=== PATIENT | male | born 1940 | race Caucasian/White ===

== ENCOUNTER 2016-10-08 23:52 | Emergency (ER) | payer MEDICARE, BC ==
[2013-12-22 00:59] VITALS: BMI 37.6
[~2016-10-08 23:52] MED LIST: ADVIL200 MG PO; ASPIRIN325 MG PO; DIABETA5 MG PO; FLAXSEED OIL1000 MG PO; FOLATE0.4 MG PO; GLUCOPHAGE500 MG PO; GLUCOSAMINE & C1 CAP PO; LEVAQUIN500 MG PO; LISINOPRIL2.5 MG PO; MAXZIDE 75/501 TAB PO; MEGA RED PO; NIACIN100 MG; NITROSTAT0.4 MG SL; NORCO 5/325 TAB1 TA1 PO; OSTEO BI-FLEX1 EAC1 PO; POTASSIUM99 M1 PO; PROTONIX40 MG PO; ROBITUSSIN DM 110 ML PO; SUPER B COMPLE150 MG PO; TRADJENTA5 MG PO; TUMS500 MG PO; ULTRAM50 MG PO; VITAMIN B-1250 MCG; VITAMIN D2000 UNIT PO; XANAX0.5 MG PO; ZOCOR5 MG PO
== END 2016-10-09 00:50 | disposition home or self-care (01) ==
LOC: D.ER 23:52
DX: R51 Headache (principal); J01.90 Acute sinusitis, unspecified; I10 Essential (primary) hypertension; E83.42 Hypomagnesemia; E87.1 Hypo-osmolality and hyponatremia; E11.9 Type 2 diabetes mellitus without complications

== ENCOUNTER → 2017-05-24 11:51 | Outpatient (CLI) | payer MEDICARE, BC ==
[2013-12-22 00:59] VITALS: BMI 37.6
[2017-05-24 12:38] LABS: BASOPHILS 0.8 % (0-2); EOSINOPHILS 2.4 % (0-7); HEMATOCRIT 45.1 % (42.0-54.0); HEMOGLOBIN 16.1 g/dL (13.5-17.5); IMMATURE GRANULOCYTES 0.4 % (0-5); LYMPHOCYTES 31.3 % (15-50); MCH 31.1 pg (26.0-34.0); MCHC 35.7 g/dL (31.0-37.0); MCV 87.1 fL (80.0-100.0); MEAN PLATELET VOLUME 10.5 fL (7.4-10.4); MONOCYTES 7.7 % (2-11); NEUTROPHILS 57.4 % (40-80); RBC 5.18 10x6/uL (4.20-6.10); RDW 13.1 % (11.5-14.5); WBC 9.1 10x3/uL (4.8-10.8)
[2017-05-24 12:46] LABS: APPEARANCE CLEAR (CLEAR); BILIRUBIN NEGATIVE (NEGATIVE); COLOR DK YELLOW (YELLOW); GLUCOSE 100 mg/dL (NEGATIVE); KETONE NEGATIVE (NEGATIVE); LEUKOCYTE ESTERASE NEGATIVE (NEGATIVE); NITRITE NEGATIVE (NEGATIVE); PROTEIN NEGATIVE (NEGATIVE); SPECIFIC GRAVITY 1.025 (1.005-1.020); UROBILINOGEN NORMAL (NORMAL)
[2017-05-24 12:47] LABS: PLATELET COUNT 208 10x3/uL (130-400)
[2017-05-24 12:57] LABS: HEMOGLOBIN A1C 7.7 % (4.8-6.0)
[2017-05-24 13:07] LABS: ALBUMIN 3.4 g/dL (3.4-5.0); ANION GAP 14.7 mmol/L (8-16); BILIRUBIN - TOTAL 0.48 mg/dL (0.2-1.3); CARBON DIOXIDE 28.7 mmol/L (21.0-32.0); CHOL - HDL RATIO 5.6 ratio (2.3-4.9); CREATININE - SERUM 1.1 mg/dL (0.6-1.3); LDL-HDL RATIO 3.4 ratio (1.5-3.5); POTASSIUM - SERUM 4.4 mmol/L (3.5-5.1); PROTEIN - SERUM 6.9 g/dL (6.4-8.2)
[2017-05-24 13:13] LABS: SCREENING PSA (YEARLY) 1.1 ng/mL (0.00-4.00)
== END | disposition home or self-care (01) ==
LOC: D.LAB 08:00
PROVIDERS: Family Medicine
DX: Z00.00 Encounter for general adult medical examination without abnormal findings (principal); E11.9 Type 2 diabetes mellitus without complications; I10 Essential (primary) hypertension; I25.10 Atherosclerotic heart disease of native coronary artery without angina pectoris; E78.4 Other hyperlipidemia; N40.0 Benign prostatic hyperplasia without lower urinary tract symptoms

== ENCOUNTER → 2017-12-22 10:16 | Outpatient (CLI) | payer MEDICARE, BC ==
[2013-12-22 00:59] VITALS: BMI 37.6
== END | disposition home or self-care (01) ==
LOC: D.RAD 10:16
DX: M54.5 Low back pain (principal)

== ENCOUNTER 2017-12-22 11:24 | Emergency (ER) | payer MEDICARE, BC ==
[2013-12-22 00:59] VITALS: BMI 37.6
== END 2017-12-22 12:39 | disposition home or self-care (01) ==
LOC: D.ER 11:24
DX: M54.2 Cervicalgia (principal); F17.200 Nicotine dependence, unspecified, uncomplicated; E11.9 Type 2 diabetes mellitus without complications; I10 Essential (primary) hypertension

== ENCOUNTER → 2018-01-18 09:25 | Outpatient (CLI) | payer MEDICARE, BC ==
[2013-12-22 00:59] VITALS: BMI 37.6
== END | disposition home or self-care (01) ==
LOC: D.RAD 09:25
DX: R22.32 Localized swelling, mass and lump, left upper limb (principal)

== ENCOUNTER → 2018-10-10 12:46 | Outpatient (CLI) | payer MEDICARE, BC ==
[2013-12-22 00:59] VITALS: BMI 37.6
== END | disposition home or self-care (01) ==
LOC: D.RAD 12:46
DX: M54.2 Cervicalgia (principal)

== ENCOUNTER → 2019-09-24 12:32 | Outpatient (CLI) | payer MEDICARE, BC ==
[2013-12-22 00:59] VITALS: BMI 37.6
== END | disposition home or self-care (01) ==
LOC: D.LAB 12:32
PROVIDERS: ATTEND Family Medicine
DX: E11.9 Type 2 diabetes mellitus without complications (principal); N40.0 Benign prostatic hyperplasia without lower urinary tract symptoms; Z00.00 Encounter for general adult medical examination without abnormal findings; I25.10 Atherosclerotic heart disease of native coronary artery without angina pectoris; I10 Essential (primary) hypertension

== ENCOUNTER 2020-03-26 13:28 | Emergency (ER) | payer MEDICARE, BC ==
[~2020-03-26] VITALS: Ht 185.4 cm; Wt 118.2 kg
[2020-03-26 13:29] VITALS: Ht 185.4 cm; Wt 118.2 kg
[2020-03-26 13:48] LABS: BASOPHILS 0.5 % (0-2); EOSINOPHILS 1.7 % (0-7); HEMATOCRIT 48.3 % (42.0-54.0); HEMOGLOBIN 16.8 g/dL (13.5-17.5); IMMATURE GRANULOCYTES 0.6 % (0-5); LYMPHOCYTES 18.3 % (15-50); MCH 31.2 pg (26.0-34.0); MCHC 34.8 g/dL (31.0-37.0); MCV 89.6 fL (80.0-100.0); MEAN PLATELET VOLUME 10.5 fL (7.4-10.4); MONOCYTES 6.2 % (2-11); NEUTROPHILS 72.7 % (40-80); PLATELET COUNT 223 10x3/uL (130-400); RBC 5.39 10x6/uL (4.20-6.10); RDW 13.3 % (11.5-14.5); WBC 12.7 10x3/uL (4.8-10.8)
[2020-03-26 13:59] LABS: ANION GAP 8.2 mmol/L (8-16); APTT 26.2 SECONDS (22.8-39.4); CALCIUM 9.7 mg/dL (8.5-10.1); CREATININE - SERUM 1.2 mg/dL (0.6-1.3); INR 0.97 (0.85-1.17); POTASSIUM - SERUM 4.2 mmol/L (3.5-5.1); PROTIME 12.9 SECONDS (11.6-15.0)
[2020-03-26 14:01] LABS: ALBUMIN 3.7 g/dL (3.4-5.0); BILIRUBIN - TOTAL 0.88 mg/dL (0.2-1.3); PROTEIN - SERUM 7.7 g/dL (6.4-8.2)
[2020-03-26] MEDS ORDERED: MEDROL DOSE PACK4 MG PO (15:25)
[2020-03-26 17:45] VITALS: BP 134/62
== END 2020-03-26 18:50 | disposition home or self-care (01) ==
LOC: D.ER 13:28
PROVIDERS: Family Medicine
DX: S09.90XA Unspecified injury of head, initial encounter (principal); S32.019A Unspecified fracture of first lumbar vertebra, initial encounter for closed fracture; D72.829 Elevated white blood cell count, unspecified; T14.8XXA Other injury of unspecified body region, initial encounter; V89.2XXA Person injured in unspecified motor-vehicle accident, traffic, initial encounter; Y93.9 Activity, unspecified; Y92.9 Unspecified place or not applicable; E11.9 Type 2 diabetes mellitus without complications; Z79.84 Long term (current) use of oral hypoglycemic drugs

== ENCOUNTER 2020-06-08 12:01 | Inpatient (IN) | payer MEDICARE, BC ==
[~2020-06-08] VITALS: Ht 185.4 cm; Wt 111.7 kg
[2020-06-08] VITALS (11 sets, daily range): BP systolic 89–156; BP diastolic 44–82
[~2020-06-08 12:01] MED LIST changes: +MEDROL DOSE PACK4 MG PO
[2020-06-08 12:41] LABS: BILIRUBIN NEGATIVE (NEGATIVE); KETONE NEGATIVE (NEGATIVE); NITRITE POSITIVE (NEGATIVE); UROBILINOGEN NORMAL mg/dL (< 2)
[2020-06-08 12:42] LABS: BACTERIA MANY HPF (NONE SEEN); EPITHELIAL CELLS 0-5 /hpf (0-5); WHITE CELLS - URINE >50 HPF (0-1)
[2020-06-08 13:30] LABS: BASOPHILS 0.4 % (0-2); EOSINOPHILS 0.5 % (0-7); HEMATOCRIT 43.9 % (42.0-54.0); HEMOGLOBIN 14.9 g/dL (13.5-17.5); IMMATURE GRANULOCYTES 0.9 % (0-5); LYMPHOCYTES 6.2 % (15-50); MCHC 33.9 g/dL (31.0-37.0); MCV 88.3 fL (80.0-100.0); MEAN PLATELET VOLUME 9.7 fL (7.4-10.4); MONOCYTES 0.4 % (2-11); NEUTROPHILS 91.6 % (40-80); PLATELET COUNT 248 10x3/uL (130-400); RBC 4.97 10x6/uL (4.20-6.10); RDW 13.5 % (11.5-14.5); WBC 5.5 10x3/uL (4.8-10.8)
[2020-06-08 13:42] LABS: CALC OSMOLALITY 284 mosm/kg (275-300); CALCIUM 8.9 mg/dL (8.5-10.1); CARBON DIOXIDE 25.3 mmol/L (21.0-32.0); CHLORIDE - SERUM 103 mmol/L (98-107); GLUCOSE 242 mg/dL (74-106); POTASSIUM - SERUM 4.1 mmol/L (3.5-5.1); SODIUM 138 mmol/L (136-145); UREA NITROGEN 14 mg/dL (7-18); eGFR NON AFRICAN AMERICAN 77 mL/min (90-120)
[2020-06-08 13:50] LABS: ALBUMIN 3.2 g/dL (3.4-5.0); ALKALINE PHOSPHATASE 178 U/L (30-120); ALT (SGPT) 9 U/L (10-68); BILIRUBIN - TOTAL 0.89 mg/dL (0.2-1.3); PROTEIN - SERUM 7.5 g/dL (6.4-8.2); TROPONIN-I 0.056 ng/mL (0.000-0.060)
--- NOTE | 2020-06-08 14:30 | NUR ---
PT PRESENTW WITH INCREASED SOB AND INCREASED AGITATION. MD NOTIFIED AND REQUESTS PT BE MOVED TO THE TRAUMA ROOM AND PREP FOR INTUBATION. PT PLACED ON NON REBREATHER 15 LPM. RT CALLED ASSIST WITH INTUBATION. SUCC 150 MG IV @ 1435 AND VERSED 10 MMG IV @ 1434. PREOXYGENTATED PT HIGH FLOW O2. DR VARGAS PLACED ET TUBE 7.5 SIZE TUBE 23 AT THE LIP. ETCO2 COLOR CHANGE. X RAY AT BEDSIDE. NG TUBE PLACED CONFIRMATION OF PLACEMENT ATTACHED TO SUCTION. QUIROGA CATH PLACED YELLOW COLORED URINE RETURN IN CATH BAG.
--- NOTE | 2020-06-08 14:50 | NUR ---
PROPROFOL 35 MCG/KG/MIN DRIP
--- NOTE | 2020-06-08 15:00 | NUR ---
AT BEDSIDE DR VARGAS DISCUSSED WITH SPOUSE UPDATES ON PT CONDITION.
--- NOTE | 2020-06-08 15:01 | NUR ---
50 MG OF SUCC WASTED
--- NOTE | 2020-06-08 15:04 | NUR ---
COVID AND FLU SWAB OBTAINED AND WALKED TO LAB
--- NOTE | 2020-06-08 15:20 | NUR ---
LAB AT BEDSIDE
--- NOTE | 2020-06-08 15:20 | NUR ---
RESTRAINTS APPLIED TO R AN L WRIST RISK OF SELF EXTUBATION
[2020-06-08 15:37] LABS: APTT 23.6 SECONDS (22.8-39.4); INR 1.02 (0.85-1.17); PROTIME 13.4 SECONDS (11.6-15.0)
--- NOTE | 2020-06-08 16:16 | NUR ---
1240 AT TIME JET PLACED IN ED ROOM, ORAL TEMP TAKEN DUE TO ELEVATED HEART RATE, ORAL TEMP 103.0
[2020-06-08 16:24] LABS: TROPONIN-I 1.654 ng/mL (0.000-0.060)
[2020-06-08 16:34] LABS: C-REACTIVE PROTEIN 2.1 mg/dL (0.0-0.9)
--- NOTE | 2020-06-08 17:02 | NUR ---
MD AWARE OF PTS VITAL SIGNS
--- NOTE | 2020-06-08 19:29 | NUR ---
DIPRIAN INCREASED TO 20 MCG/KG/MIN
[2020-06-09] VITALS (25 sets, daily range): BP systolic 87–133; BP diastolic 20–72; BMI 34.1; BMI 34.0
[2020-06-09 01:04] LABS: CKMB 165.1 U/L (0.0-3.6)
[2020-06-09 01:05] LABS: CREATINE KINASE 1287 UL (21-232); TROPONIN-I 26.799 ng/mL (0.000-0.060)
[2020-06-09 07:27] LABS: CKMB 142.5 U/L (0.0-3.6)
[2020-06-09 07:31] LABS: CREATINE KINASE 1896 UL (21-232); TROPONIN-I 38.252 ng/mL (0.000-0.060)
[2020-06-09 08:14] LABS: ANION GAP 15.2 mmol/L (8-16); BILIRUBIN - TOTAL 0.54 mg/dL (0.2-1.3); CALCIUM 7.8 mg/dL (8.5-10.1); CARBON DIOXIDE 23.7 mmol/L (21.0-32.0); POTASSIUM - SERUM 3.9 mmol/L (3.5-5.1)
[2020-06-09 08:18] LABS: ALBUMIN 2.3 g/dL (3.4-5.0); CREATININE - SERUM 2.1 mg/dL (0.6-1.3)
[2020-06-09 08:47] LABS: HEMOGLOBIN 13.3 g/dL (13.5-17.5); MCH 30.4 pg (26.0-34.0); MCHC 33.3 g/dL (31.0-37.0); MCV 91.3 fL (80.0-100.0); MEAN PLATELET VOLUME 10.4 fL (7.4-10.4); PLATELET COUNT 245 10x3/uL (130-400); RBC 4.38 10x6/uL (4.20-6.10); RDW 14.2 % (11.5-14.5); WBC 32.1 10x3/uL (4.8-10.8)
[2020-06-09 09:45] LABS: LYMPHOCYTES 2 % (15-50); MONOCYTES 8 % (2-11); NEUTROPHILS 63 % (40-80); PLATELET ESTIMATE NORMAL
--- NOTE | 2020-06-09 10:14 | NUR ---
ECHO BEING COMPLETED AT BEDSIDE
[2020-06-09 13:37] LABS: CKMB 95.2 U/L (0.0-3.6)
[2020-06-09 13:43] LABS: CREATINE KINASE 2152 UL (21-232); TROPONIN-I 29.011 ng/mL (0.000-0.060)
[2020-06-10] VITALS (21 sets, daily range): BP systolic 98–153; BP diastolic 53–78
[2020-06-10 05:34] LABS: ALBUMIN 2.2 g/dL (3.4-5.0); ALKALINE PHOSPHATASE 134 U/L (30-120); BILIRUBIN - TOTAL 0.88 mg/dL (0.2-1.3); CALCIUM 8.3 mg/dL (8.5-10.1); CARBON DIOXIDE 27.1 mmol/L (21.0-32.0); CHLORIDE - SERUM 99 mmol/L (98-107); MAGNESIUM - SERUM 1.8 mg/dL (1.8-2.4); PHOSPHOROUS 3.3 mg/dL (2.5-4.9); PROTEIN - SERUM 6.7 g/dL (6.4-8.2); SODIUM 134 mmol/L (136-145)
[2020-06-10 05:35] LABS: ALT (SGPT) 41 U/L (10-68); CALC OSMOLALITY 285 mosm/kg (275-300); CREATINE KINASE 4008 UL (21-232); CREATININE - SERUM 1.4 mg/dL (0.6-1.3); GLUCOSE 251 mg/dL (74-106); UREA NITROGEN 41 mg/dL (7-18); eGFR NON AFRICAN AMERICAN 52 mL/min (90-120)
[2020-06-10 05:36] LABS: TROPONIN-I 22.498 ng/mL (0.000-0.060)
[2020-06-10 05:56] LABS: CKMB 25.4 U/L (0.0-3.6)
[2020-06-10 07:21] LABS: BASOPHILS 0.2 % (0-2); EOSINOPHILS 0 % (0-7); HEMATOCRIT 43.8 % (42.0-54.0); HEMOGLOBIN 14.9 g/dL (13.5-17.5); IMMATURE GRANULOCYTES 3.2 % (0-5); LYMPHOCYTES 6.8 % (15-50); MCH 30.3 pg (26.0-34.0); MEAN PLATELET VOLUME 11.2 fL (7.4-10.4); MONOCYTES 7.1 % (2-11); NEUTROPHILS 82.7 % (40-80); PLATELET COUNT 181 10x3/uL (130-400); RBC 4.92 10x6/uL (4.20-6.10); RDW 13.9 % (11.5-14.5); WBC 23.8 10x3/uL (4.8-10.8)
[2020-06-11] VITALS (23 sets, daily range): BP systolic 88–133; BP diastolic 52–70
[2020-06-11 05:12] LABS: HEMOGLOBIN 14.3 g/dL (13.5-17.5); LYMPHOCYTES 4.9 % (15-50); MCH 30.3 pg (26.0-34.0); MCHC 34.9 g/dL (31.0-37.0); MCV 86.9 fL (80.0-100.0); MEAN PLATELET VOLUME 11.8 fL (7.4-10.4); NEUTROPHILS 91.1 % (40-80); PLATELET COUNT 171 10x3/uL (130-400); RBC 4.72 10x6/uL (4.20-6.10); WBC 15.6 10x3/uL (4.8-10.8)
[2020-06-11 05:46] LABS: ALBUMIN 1.9 g/dL (3.4-5.0); ALKALINE PHOSPHATASE 94 U/L (30-120); ALT (SGPT) 37 U/L (10-68); BILIRUBIN - TOTAL 0.97 mg/dL (0.2-1.3); CALC OSMOLALITY 273 mosm/kg (275-300); CALCIUM 8.3 mg/dL (8.5-10.1); CARBON DIOXIDE 27.6 mmol/L (21.0-32.0); CHLORIDE - SERUM 101 mmol/L (98-107); CREATININE - SERUM 1.1 mg/dL (0.6-1.3); GLUCOSE 251 mg/dL (74-106); PROTEIN - SERUM 6.3 g/dL (6.4-8.2); SODIUM 128 mmol/L (136-145); UREA NITROGEN 39 mg/dL (7-18); eGFR NON AFRICAN AMERICAN 69 mL/min (90-120)
[2020-06-11 06:08] LABS: CREATINE KINASE 2349 UL (21-232); POTASSIUM - SERUM 3.3 mmol/L (3.5-5.1)
[2020-06-11 06:12] LABS: CKMB 7.4 U/L (0.0-3.6); PHOSPHOROUS 1.2 mg/dL (2.5-4.9)
[2020-06-12] VITALS (23 sets, daily range): BP systolic 91–133; BP diastolic 51–93
[2020-06-12 09:29] LABS: ALBUMIN 1.8 g/dL (3.4-5.0); ALKALINE PHOSPHATASE 96 U/L (30-120); ALT (SGPT) 41 U/L (10-68); BILIRUBIN - TOTAL 0.72 mg/dL (0.2-1.3); CALCIUM 8.3 mg/dL (8.5-10.1); CARBON DIOXIDE 27.3 mmol/L (21.0-32.0); CHLORIDE - SERUM 105 mmol/L (98-107); CREATININE - SERUM 1.3 mg/dL (0.6-1.3); GLUCOSE 252 mg/dL (74-106); PROTEIN - SERUM 5.8 g/dL (6.4-8.2); SODIUM 144 mmol/L (136-145); eGFR NON AFRICAN AMERICAN 57 mL/min (90-120)
[2020-06-12 09:30] LABS: CALC OSMOLALITY 315 mosm/kg (275-300); CREATINE KINASE 2381 UL (21-232); MAGNESIUM - SERUM 2.7 mg/dL (1.8-2.4); PHOSPHOROUS 3.9 mg/dL (2.5-4.9); POTASSIUM - SERUM 4.5 mmol/L (3.5-5.1); TROPONIN-I 8.067 ng/mL (0.000-0.060); UREA NITROGEN 68 mg/dL (7-18)
[2020-06-12 09:31] LABS: CKMB 9.8 U/L (0.0-3.6)
[2020-06-12 09:39] LABS: HEMATOCRIT 46.4 % (42.0-54.0); HEMOGLOBIN 15.6 g/dL (13.5-17.5); MCH 29.8 pg (26.0-34.0); MCHC 33.6 g/dL (31.0-37.0); MCV 88.5 fL (80.0-100.0); MEAN PLATELET VOLUME 11.7 fL (7.4-10.4); PLATELET COUNT 229 10x3/uL (130-400); RBC 5.24 10x6/uL (4.20-6.10); WBC 23.6 10x3/uL (4.8-10.8)
--- NOTE | 2020-06-12 10:55 | NUR ---
Nutrition follow-up: Chart reviewed; labs reviewed Pt intubated, sedated with propofol @ 45 ml/hr Received order from Dr. Hubbard to begin TF today. Will start Pulmocare @ 10 ml/hr with increase to goal rate of 40 ml/hr with 25 ml H2O flush q hour RDN following.
--- NOTE | 2020-06-12 12:30 | NUR ---
DR SHEPPARD HERE TO SEE. NEW ORDERS RECIEVED. PLANNING ON BRONCH AT BEDSIDE. WAS UPDATED BY DR SHEPPARD.
[2020-06-12 13:10] LABS: EOSINOPHILS 1 % (0-7); LYMPHOCYTES 10 % (15-50); MONOCYTES 10 % (2-11); NEUTROPHILS 65 % (40-80); PLATELET ESTIMATE NORMAL
[2020-06-12 13:11] LABS: ANISOCYTOSIS OCC; ROULEAUX OCC
[2020-06-13] VITALS (25 sets, daily range): BP systolic 72–120; BP diastolic 41–61
[2020-06-13 06:13] LABS: HEMATOCRIT 47.3 % (42.0-54.0); HEMOGLOBIN 15.1 g/dL (13.5-17.5); MCH 29.2 pg (26.0-34.0); MCHC 31.9 g/dL (31.0-37.0); MCV 91.5 fL (80.0-100.0); MEAN PLATELET VOLUME 12.1 fL (7.4-10.4); PLATELET COUNT 340 10x3/uL (130-400); RBC 5.17 10x6/uL (4.20-6.10); RDW 14.7 % (11.5-14.5); WBC 30.1 10x3/uL (4.8-10.8)
[2020-06-13 06:26] LABS: BILIRUBIN - TOTAL 0.71 mg/dL (0.2-1.3); CALCIUM 8.6 mg/dL (8.5-10.1); CARBON DIOXIDE 24.5 mmol/L (21.0-32.0); PROTEIN - SERUM 6.4 g/dL (6.4-8.2)
[2020-06-13 06:34] LABS: ALBUMIN 1.5 g/dL (3.4-5.0); ANION GAP 17.1 mmol/L (8-16); CREATININE - SERUM 2.9 mg/dL (0.6-1.3); POTASSIUM - SERUM 5.6 mmol/L (3.5-5.1)
[2020-06-13 08:05] LABS: EOSINOPHILS 1 % (0-7); LYMPHOCYTES 18 % (15-50); MONOCYTES 3 % (2-11); NEUTROPHILS 77 % (40-80); PLATELET ESTIMATE NORMAL
[2020-06-13 19:08] LABS: ACID FAST SMEAR Negative (()); AFB SPECIMEN PROCESSING Concentration (())
[2020-06-14] VITALS (55 sets, daily range): BP systolic 79–123; BP diastolic 41–57
[2020-06-14 06:31] LABS: HEMATOCRIT 42.3 % (42.0-54.0); HEMOGLOBIN 14.1 g/dL (13.5-17.5); MCH 29.9 pg (26.0-34.0); MCHC 33.3 g/dL (31.0-37.0); MCV 89.8 fL (80.0-100.0); MEAN PLATELET VOLUME 11.8 fL (7.4-10.4); PLATELET COUNT 306 10x3/uL (130-400); RBC 4.71 10x6/uL (4.20-6.10); RDW 15.2 % (11.5-14.5)
[2020-06-14 06:48] LABS: ALBUMIN 1.3 g/dL (3.4-5.0); ANION GAP 22.4 mmol/L (8-16); BILIRUBIN - TOTAL 0.59 mg/dL (0.2-1.3); CALCIUM 7.6 mg/dL (8.5-10.1); CARBON DIOXIDE 21.2 mmol/L (21.0-32.0); POTASSIUM - SERUM 5.6 mmol/L (3.5-5.1); PROTEIN - SERUM 5.8 g/dL (6.4-8.2)
[2020-06-14 06:52] LABS: CREATININE - SERUM 4.3 mg/dL (0.6-1.3); TROPONIN-I 10.319 ng/mL (0.000-0.060)
--- NOTE | 2020-06-14 13:22 | NUR ---
DR ALVES PAGED REGARDING PTS BLOOD PRESSURE TRENDING SBP 70S-80S.
[2020-06-14 13:27] LABS: LYMPHOCYTES 10 % (15-50); MONOCYTES 8 % (2-11); NEUTROPHILS 71 % (40-80); PLATELET ESTIMATE NORMAL; ROULEAUX OCC
[2020-06-15] VITALS (97 sets, daily range): BP systolic 61–161; BP diastolic 33–75; Ht 185.4 cm; Wt 111.7 kg
--- NOTE | 2020-06-15 01:27 | NUR ---
DR PEGN MADE AWARE OF TEMP 103.1 AND CURRENTLY 103.3. ORDERS GIVEN AND IMPLEMENTED.
[2020-06-15 06:36] LABS: ALBUMIN 1.3 g/dL (3.4-5.0); BILIRUBIN - TOTAL 1.01 mg/dL (0.2-1.3); CALCIUM 7.2 mg/dL (8.5-10.1); CARBON DIOXIDE 17.6 mmol/L (21.0-32.0); PROTEIN - SERUM 5.6 g/dL (6.4-8.2); VANCOMYCIN - RANDOM 38.3 ug/mL (10.0-20.0)
[2020-06-15 06:39] LABS: ANION GAP 28.9 mmol/L (8-16); MAGNESIUM - SERUM 3.7 mg/dL (1.8-2.4); PHOSPHOROUS 9.2 mg/dL (2.5-4.9); POTASSIUM - SERUM 6.5 mmol/L (3.5-5.1)
--- NOTE | 2020-06-15 06:51 | NUR ---
DR ALVES PAGED AND RETURNED PAGE TO INFORM HIM OF CRITICAL LABS WELL CR LEVEL. NO NEW ORDERS GIVEN.
[2020-06-15 08:04] LABS: HEMATOCRIT 41.4 % (42.0-54.0); HEMOGLOBIN 13.6 g/dL (13.5-17.5); MCH 29.6 pg (26.0-34.0); MCHC 32.9 g/dL (31.0-37.0); MEAN PLATELET VOLUME 12.1 fL (7.4-10.4); PLATELET COUNT 447 10x3/uL (130-400); RDW 15.9 % (11.5-14.5); WBC 48.1 10x3/uL (4.8-10.8)
[2020-06-15 08:35] LABS: LYMPHOCYTES 3 % (15-50); MONOCYTES 6 % (2-11); NEUTROPHILS 86 % (40-80); PLATELET ESTIMATE NORMAL
--- NOTE | 2020-06-15 10:16 | NUR ---
Nutrition follow-up: Intubated, sedate with propofol @ 15 ml/hr TF off at this time 2/2 increased residuals per nurse Labs reviewed WT: 258# Levophed started 2/2 low BP RDN following.
[2020-06-15 12:09] LABS: FUNGUS STAIN Final report (())
[2020-06-15 14:49] LABS: ALBUMIN 1.3 g/dL (3.4-5.0); ALKALINE PHOSPHATASE 92 U/L (30-120); ALT (SGPT) 52 U/L (10-68); BILIRUBIN - TOTAL 0.91 mg/dL (0.2-1.3); CARBON DIOXIDE 15.9 mmol/L (21.0-32.0); CREATININE - SERUM 6.7 mg/dL (0.6-1.3); eGFR NON AFRICAN AMERICAN 9 mL/min (90-120)
[2020-06-15 15:43] LABS: CALC OSMOLALITY 371 mosm/kg (275-300); CHLORIDE - SERUM 104 mmol/L (98-107); GLUCOSE 235 mg/dL (74-106); SODIUM 143 mmol/L (136-145)
[2020-06-15 15:44] LABS: CREATINE KINASE 6022 UL (21-232)
[2020-06-15 15:46] LABS: UREA NITROGEN 234 mg/dL (7-18)
[2020-06-15 15:47] LABS: CALCIUM 6.6 mg/dL (8.5-10.1); POTASSIUM - SERUM 7.7 mmol/L (3.5-5.1)
[2020-06-15 15:48] LABS: CKMB 6.6 U/L (0.0-3.6)
[2020-06-16] VITALS: BP 120/56
[2020-06-16 01:50] VITALS: BP 115/50
[2020-06-16 05:05] VITALS: BP 104/46
--- NOTE | 2020-06-16 05:59 | NUR ---
DR EDWARDS IN UNIT AND AWARE OF RUNS OF VTACH WELL ALL DRIPS AND VITALS. AWARE OF CURRENT CODE STATUS OF MED CODE ONLY.
[2020-06-16 06:05] VITALS: BP 113/53
[2020-06-16 06:16] LABS: HEMATOCRIT 40.4 % (42.0-54.0); HEMOGLOBIN 13.4 g/dL (13.5-17.5); MCH 29.5 pg (26.0-34.0); MCHC 33.2 g/dL (31.0-37.0); MCV 88.8 fL (80.0-100.0); PLATELET COUNT 345 10x3/uL (130-400); RBC 4.55 10x6/uL (4.20-6.10); RDW 16.1 % (11.5-14.5); WBC 45.2 10x3/uL (4.8-10.8)
[2020-06-16 06:34] LABS: CARBON DIOXIDE 18.7 mmol/L (21.0-32.0); CREATININE - SERUM 7.7 mg/dL (0.6-1.3)
--- NOTE | 2020-06-16 06:38 | NUR ---
CALLED TO CONSENT FOR DIALYSIS CATHETER PLACEMENT. DR GREENFIELD SPEAKING WITH AT PRESENT. HAS GIVEN CONSENT. QUESTIONS ANSWERED BEST POSSIBLE.
[2020-06-16 07:48] LABS: ALBUMIN 1.2 g/dL (3.4-5.0); ALKALINE PHOSPHATASE 83 U/L (30-120); ALT (SGPT) 57 U/L (10-68); PROTEIN - SERUM 4.8 g/dL (6.4-8.2); VANCOMYCIN - RANDOM 30.8 ug/mL (10.0-20.0)
[2020-06-16 09:33] LABS: ANION GAP 29.7 mmol/L (8-16)
[2020-06-16 09:34] LABS: CREATINE KINASE 11577 UL (21-232); TROPONIN-I 9.368 ng/mL (0.000-0.060)
[2020-06-16 09:35] LABS: CALCIUM 6.5 mg/dL (8.5-10.1); POTASSIUM - SERUM 8.4 mmol/L (3.5-5.1)
[2020-06-16 09:36] LABS: CKMB 15.8 U/L (0.0-3.6); MAGNESIUM - SERUM 3.9 mg/dL (1.8-2.4); PHOSPHOROUS 12.3 mg/dL (2.5-4.9)
--- NOTE | 2020-06-16 10:03 | NUR ---
CRITICAL LABS CALLED TO DR RITTER OFFICE. DR RITTER ON VACATION, TONEY IN THE OFFICE IS FORWARDING THE INFORMATION TO THE COVERING MD. K+ 8.4 BUN 234, CA 6.5, MAG 3.9, PHOS 12.3. SHARED INFORMATION WITH PET CARE ASSISTANT. CALL PLACED TO SURGERY FOR TRIALYSIS CATHETER PLACEMENT TIME
--- NOTE | 2020-06-16 10:06 | NUR ---
DR MARTI IN THE OR. HE STATED TO PAGE DR KHAN FOR A TRIALYSIS PLACEMENT. DR KHAN PAGED AND STGATED HE WILL BE OVER SUE.
[2020-06-16 10:10] LABS: LYMPHOCYTES 8 % (15-50); MONOCYTES 9 % (2-11); NEUTROPHILS 83 % (40-80); PLATELET ESTIMATE NORMAL
--- NOTE | 2020-06-16 14:20 | NUR ---
1339 ASYSTOLE. NOTIFIED. FAMILY CALLED. DIANELYS NOTIFIED.
--- NOTE | 2020-06-16 18:26 | MORECARE ---
CASE MANAGEMENT DISCHARGE SUMMARY PATIENT: CHIQUITA HARMON UNIT: [id number] ADM DATE: 06/08/20 AGE: 79 : 42 SEX: M ROOM/BED: D.2304 AUTHOR: RAFAEL CONTI PHYSICIAN: REFERRING PHYSICIAN: JEANNIE ALVES MD DATE OF SERVICE: 06/16/20 Discharge Plan Patient Name: CHIQUITA HARMON [facility] : 1940 Planned Disposition: Anticipated Discharge Date: Discharge Date: 06/16/2020 Expected LOS: Initial Reviewer: [email or web address] Initial Review Date: 06/08/2020 Generated: 06/16/20 7:25 pm Patient Name: CHIQUITA HARMON Page [id number] at 1826 All edits/amendments must be made on the electronic document DICTATION DATE: 06/16/201824 GROUNDSKEEPING MAINTENANCE: JAMES 06/16/201824 RPT#: [id number] DC DATE:06/16/20 STATUS: DIS IN [facility] [address] [place] [id number] END OF REPORT
[2020-06-17 09:13] LABS: HEPATITIS C ANTIBODY <0.1 S/CO RAT (0.0-0.9)
--- NOTE | 2020-06-17 16:10 | OP ---
PATIENT NAME: CHIQUITA HARMON MEDICAL RECORD: [id number] :42 LOCATION:.[facility] D.2304 ADMISSION DATE:06/08/20 SURGEON: PAULA KHAN MD DATE OF OPERATION: 06/16/2020 PREOPERATIVE DIAGNOSES: 1. Acute renal failure. 2. Hyperkalemia. 3. Ventilatory failure requiring mechanical ventilation. POSTOPERATIVE DIAGNOSES: 1. Acute renal failure. 2. Hyperkalemia 3. Ventilatory failure requiring mechanical ventilation. PROCEDURES: Insertion of left neck Trialysis catheter, which is a triple lumen, non-cuffed, non-tunneled hemodialysis catheter. 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 The entire procedure was performed in the presence of a nurse. Consent was obtained from relatives. DESCRIPTION OF PROCEDURE: The left neck was sterilely prepped and draped. A local anesthetic was used to infiltrate the skin and subcutaneous tissue at the base of the left neck. Utilizing the ultrasound, I was able to identify a compressible left internal jugular vein. This was percutaneously accessed. A guidewire passed easily. A small skin alona was accomplished. A vessel dilator and sheath were used to dilate a subcutaneous tracts. I then inserted a short Trialysis catheter to the hub. It was sutured in place times 3 with 4-0 nylons. A sterile dressing was applied. All lumens flushed easily and aspirated dark, nonpulsatile blood. A chest x-ray revealed adequate placement of the Trialysis catheter, which is okay to use. TRANSINT:[id number] Voice Confirmation ID: [id number] DOCUMENT ID: [id number] PAULA KHAN MD at 1610 CC: [id number] DICTATION DATE: 06/16/20 1512 RESPIRATORY THERAPY TECHNICIAN: 06/17/20 0155 DIS IN 06/16/20 [facility] [address] [place] [address]
[2020-06-18 17:09] LABS: FUNGUS MYCOLOGY CULTURE Preliminary report (())
== END 2020-06-16 15:20 | DRG 870 ==
LOC: D.ER 12:01 → D.ICU 21:05
PROVIDERS: Family Medicine; Internal Medicine; Internal Medicine Nephrology; Internal Medicine Pulmonary Disease; ADMIT Family Medicine; ATTEND Family Medicine
PROC: 0BH17EZ Insertion of Endotracheal Airway into Trachea, Via Natural or Artificial Opening (ICD-10-PCS; principal; 2020-06-08)
PROC: 5A1955Z Respiratory Ventilation, Greater than 96 Consecutive Hours (ICD-10-PCS; 2020-06-08)
PROC: 05HM33Z Insertion of Infusion Device into Right Internal Jugular Vein, Percutaneous Approach (ICD-10-PCS; 2020-06-16)
DX: A41.9 Sepsis, unspecified organism (principal); J96.01 Acute respiratory failure with hypoxia; I21.A1 Myocardial infarction type 2; R65.21 Severe sepsis with septic shock; J96.02 Acute respiratory failure with hypercapnia; N17.0 Acute kidney failure with tubular necrosis; I50.21 Acute systolic (congestive) heart failure; J15.212 Pneumonia due to Methicillin resistant Staphylococcus aureus; N30.00 Acute cystitis without hematuria; E87.1 Hypo-osmolality and hyponatremia; E87.2 Acidosis; I25.10 Atherosclerotic heart disease of native coronary artery without angina pectoris; E78.5 Hyperlipidemia, unspecified; E66.9 Obesity, unspecified; Z68.30 Body mass index [BMI] 30.0-30.9, adult; M19.90 Unspecified osteoarthritis, unspecified site; N40.1 Benign prostatic hyperplasia with lower urinary tract symptoms; R39.12 Poor urinary stream; Z79.84 Long term (current) use of oral hypoglycemic drugs; Z87.891 Personal history of nicotine dependence; E11.21 Type 2 diabetes mellitus with diabetic nephropathy; E83.39 Other disorders of phosphorus metabolism; E87.6 Hypokalemia; B96.20 Unspecified Escherichia coli [E. coli] as the cause of diseases classified elsewhere; I11.0 Hypertensive heart disease with heart failure